=== PATIENT | male | born 1950 | race Caucasian/White ===

== ENCOUNTER 2018-03-27 16:06 | Emergency (ER) | payer OTHER, MEDICARE ==
[~2018-03-27] VITALS: Ht 180.3 cm; Wt 154.2 kg
[~2018-03-27 16:06] MED LIST: ASPIRIN EC81 MG PO; B COMPLETE1 EACH PO; C COMPLEX500 MG PO; CYTOTEC200 MCG PO; FEXOFENADINE H180 MG PO; FLOMAX0.4 MG PO; KEPPRA750 MG PO; LAMICTAL200 MG PO; LEVOTHYROXINE100 MCG PO; LOFIBRA160 MG PO; PERCOCET 5-3251 EACH PO; VENLAFAXINE HCL75 MG PO; VITAMIN D35000 UNIT PO
== END 2018-03-27 18:22 | disposition home or self-care (01) ==
LOC: ED 16:06
PROC: 0HQGXZZ Repair Left Hand Skin, External Approach (ICD-10-PCS; principal; 2018-03-27)
DX: S61.213A Laceration without foreign body of left middle finger without damage to nail, initial encounter (principal); I10 Essential (primary) hypertension; K21.9 Gastro-esophageal reflux disease without esophagitis; Z87.891 Personal history of nicotine dependence; Z91.038 Other insect allergy status; Z91.030 Bee allergy status; Z79.82 Long term (current) use of aspirin; Z79.899 Other long term (current) drug therapy; W20.8XXA Other cause of strike by thrown, projected or falling object, initial encounter
CPT/HCPCS: 12001; 99282

== ENCOUNTER 2023-03-19 08:45 | Day surgery (SDC) | payer MEDICARE, OTHER ==
[2023-03-16 09:07] VITALS: BP 130/68
[~2023-03-19] VITALS: Ht 180.3 cm; Wt 126.8 kg
[~2023-03-19 08:45] MED LIST changes: +ADIPEX-P37.5 MG PO; +ALLEGRA ALLERG180 MG PO; +BUSPIRONE HCL15 MG PO; +CYCLOBENZAPRINE10 MG PO; +CYMBALTA60 MG PO; +DEPO-TESTO200 MG/1 M IM; +DICLOFENAC SODI75 MG PO; +FENOFIBRATE160 MG PO; +LANSOPRAZOLE30 MG PO; +MISOPROSTOL100 MCG PO; +NEURONTIN300 MG PO; +NORCO 5-325 TA1 EACH PO; +PHENTERMINE H37.5 MG PO; +PREVACID30 MG PO; +VENLAFAXINE H37.5 MG PO; +VENTOLIN HFA18 GM INH
[2023-03-19 08:54] VITALS: BP 139/57
--- NOTE | 2023-03-19 10:14 | NUR ---
03/19/23 1014 Sheets,Dorota 1006 PT ARRIVED TO PACU ON 6L VIA MASK, PT ASLEEP WITH SNORING NOTED. 1012 PT WOKE TO TACTILE STIMULI AND EASILY FALLS BACK TO SLEEP. LESS SNORNING NOTED.
[2023-03-19 10:27] VITALS: BP 121/71
--- NOTE | 2023-03-19 11:59 | OR ---
[facility] [address], [place] [address] Signed DATE OF OPERATION: 03/19/2023 SURGEON: Angie Lee MD PREOPERATIVE DIAGNOSES: 1. Screening. 2. Chronic intermittent constipation. POSTOPERATIVE DIAGNOSES: 1. Minimal sigmoid diverticulosis. 2. Minimal internal hemorrhoids. PROCEDURE: Colonoscopy without biopsy. ESTIMATED BLOOD LOSS: None. INDICATIONS: Irwin is a 72-year-old obese gentleman, asked to see me for a followup screening colonoscopy. He remembers a negative colonoscopy in his 50s in [place], [place]. He cannot remember being asked to followup. He has no family history of colon cancer or polyps. He said he has intermittent constipation most of his life. He said probably 60% of the time he is constipated. He said it got worse after his back surgery. 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 More recently, he has lost 85 pounds with the help of his doctor. He also told me he is slow to wake up from anesthesia despite the fact he is a large man. In the office, I had given him a pamphlet on colonoscopy. We reviewed that together. He understands there is risk including, but not limited to gas bloating, crampy abdominal pain, bleeding, perforation requiring surgery, and missed diagnosis. We had reviewed our bowel prep with him line by line. We asked him to do a double bowel prep. Consequently, he did one gallon of polyethylene glycol along with Dulcolax tablets. Overall that worked out fairly well. Also because of his size and his sleep apnea with COPD and his history of seizures, we asked for monitored anesthesia care. He had expressed understanding and wished to proceed. PROCEDURE NOTE: Iriwn was taken into our endoscopy suite and placed in the left lateral decubitus position. He had received Ancef preoperatively because of his bilateral knee replacements. He was given monitored anesthesia care with propofol infusion per our Electronically Signed By: ANGIE LEE MD 03/19/23 1159 PATIENT NAME: IRWIN PENG OPERATIVE REPORT DATE OF : 48 REPORT #: [id number] PHYSICIAN: ANGIE LEE MD PCP: YAMINI SPENCE MD REPORT IS CONFIDENTIAL AND NOT TO BE RELEASED WITHOUT AUTHORIZATION [facility] [address] [place] [id number] Signed nurse medical coder. A digital rectal exam was performed and this was unremarkable. He had good sphincter tone. No external hemorrhoids. No masses. The prostate is enlarged and indurated. The adult colonoscope had been introduced and advanced under direct visualization of the camera up into the cecum itself. He had some areas in his colon where he still had heavy pasty particulate stool matter that could not be suctioned through the scope. The most difficult area was in the cecum itself. Even with irrigation, we could not move that out of the way. That would be the only area we really could not see well. The scope was then slowly withdrawn. We took pictures throughout for photodocumentation. We saw a few diverticula in the sigmoid colon. They were small to moderate in size, few in number, and scattered about. In the rectum, the scope was retroflexed and he does have minimal to moderate internal hemorrhoid columns. He had a small lipoma in the distal rectum. After this, the gas was suctioned out and colonoscope removed. Irwin tolerated the procedure quite well. RECOMMENDATIONS: Irwin can return in 10 years for repeat screening colonoscopy if his health holds up. He will always need additional bowel prep based on his history of chronic constipation. Angie Lee MD [facility]/MOD[facility] /[id number] cc: MD Dr. Yamini Ramos Copies: ANGIE LEE MD ~ Electronically Signed By: ANGIE LEE MD 03/19/23 1159 PATIENT NAME: IRWIN PENG KRISTIAN OPERATIVE REPORT DATE OF : 48 REPORT #: [id number] PHYSICIAN: ANGIE LEE MD PCP: YAMINI SPENCE MD REPORT IS CONFIDENTIAL AND NOT TO BE RELEASED WITHOUT AUTHORIZATION
== END 2023-03-19 10:44 | disposition home or self-care (01) ==
LOC: OPS 08:45 → DS 08:45 → OPS 09:45 → DS 09:45 → OPS 10:44
PROVIDERS: ATTEND Colon & Rectal Surgery
PROC: 0DJD8ZZ Inspection of Lower Intestinal Tract, Via Natural or Artificial Opening Endoscopic (ICD-10-PCS; principal; 2023-03-19 09:45)
DX: K57.30 Diverticulosis of large intestine without perforation or abscess without bleeding (principal); K64.8 Other hemorrhoids; K59.00 Constipation, unspecified; N40.0 Benign prostatic hyperplasia without lower urinary tract symptoms; E66.9 Obesity, unspecified; G47.33 Obstructive sleep apnea (adult) (pediatric); J44.9 Chronic obstructive pulmonary disease, unspecified; R56.9 Unspecified convulsions; E03.9 Hypothyroidism, unspecified; F32.9 Major depressive disorder, single episode, unspecified
CPT/HCPCS: J0690; J2704; J7121